=== PATIENT | male | born 1995 ===

== ENCOUNTER 2023-06-26 14:19 | Outpatient (CLI) | payer OTHER ==
--- NOTE | 2023-06-26 20:06 | MRI Report ---
PROCEDURE: LUMBAR SPINE WO INDICATIONS: DORSALGIA TECHNIQUE: Noncontrast sagittal T1 spin echo and T2 fast echo, sagittal STIR, axial T2 fast spin echo through th e lumbar spine. COMPARISON: None. FINDINGS: Image quality: Excellent. Alignment and Curvature: There is normal bony alignment. Bone Marrow: Marrow is of normal overall signal. No acute vertebral body compression fractures. Spinal Cord: Conus medullaris terminates at the L1-2 disc space level. Visualized cord demonstrates normal signal and size. Paraspinous Soft Tissues: No paravertebral masses. Discs: No significant disc bulging, spinal canal stenosis, or neuroforaminal narrowing is seen at any level in the lumbar spine. IMPRESSION: Lumbar spine MRI is within normal limits. Reviewed by: Josh Decker MD on 06/26/2023 8:04 PM PDT Approved by: Josh Decker MD on 06/26/2023 8:04 PM PDT Station ID: [id number]
== END 2023-06-26 14:20 | disposition home or self-care (01) ==
LOC: DI 14:19
DX: M54.59 Other low back pain (principal)

== ENCOUNTER 2024-02-12 07:14 | Outpatient (CLI) | payer OTHER ==
--- NOTE | 2024-02-12 12:04 | MRI Report ---
PROCEDURE: Lumbar Spine WO INDICATIONS: LOW BACK PAIN TECHNIQUE: Noncontrast sagittal T1 spin echo and T2 fast echo, sagittal STIR, axial T1 and T2 fast spin echo thr ough the lumbar spine. In cases with scoliosis, additional coronal T2 fast spin echo may be performe d. COMPARISON: 06/26/2023. FINDINGS: Image quality: Excellent. Alignment and Curvature: There is normal bony alignment. Bone Marrow: Marrow is of normal overall signal. No acute vertebral body compression fractures. Spinal Cord: Conus medullaris terminates at the L1 level. Visualized cord demonstrates normal signa l and size. Paraspinous Soft Tissues: No paravertebral masses. T12-L1: Normal in appearance. L1-L2: Normal in appearance. L2-L3: Normal in appearance. L3-L4: Normal in appearance. L4-L5: Normal in appearance. L5-S1: Normal in appearance. IMPRESSION: 1. No compression fracture or spondylolisthesis in lumbar spine. No suspicious bony lesion. 2. No significant disc bulge, canal stenosis or neural foraminal narrowing. Reviewed by: Magno Mistry MD on 02/12/2024 12:03 PM PDT Approved by: Magno Mistry MD on 02/12/2024 12:03 PM PDT Station ID: [id number]
== END 2024-02-12 07:15 | disposition home or self-care (01) ==
LOC: DI 07:14
PROVIDERS: ATTEND Student in an Organized Health Care Education/Training Program
DX: M54.50 Low back pain, unspecified (principal)

== ENCOUNTER 2024-02-20 09:15 | Outpatient (CLI) | payer OTHER ==
--- NOTE | 2024-02-22 09:26 | MRI Report ---
PROCEDURE: Cervical Spine WO INDICATIONS: CERVICAL RADICULITIS TECHNIQUE: Noncontrast sagittal T1 spin echo and T2 fast spin echo, sagittal STIR, foraminal oblique sagittal T2 fast spin echo, and axial gradient echo or T2 fast spin echo through the cervical spine. COMPARISON: None. FINDINGS: Image quality: Excellent. Alignment and Curvature: There is normal bony alignment. Bone Marrow: Marrow demonstrates normal overall signal. Spinal Cord: Visualized spinal cord has normal size and signal. No cerebellar tonsillar herniation. Paraspinous Soft Tissues: No paravertebral masses. Prevertebral soft tissues are normal in thicknes s. C2-C3: Normal in appearance. C3-C4: Normal in appearance. C4-C5: Normal in appearance. C5-C6: Mild disc desiccation and disc height loss. No significant neural foraminal narrowing. C6-C7: Normal in appearance. C7-T1: Normal in appearance. IMPRESSION: 1.No compression fracture or suspicious osseous lesion. 2.Mild disc height loss at C5-C6 without significant central or neuroforaminal stenosis. Reviewed by: Savita Howell MD on 02/22/2024 9:24 AM PDT Approved by: Savita Howell MD on 02/22/2024 9:24 AM PDT Station ID: [id number]
== END 2024-02-20 09:16 | disposition home or self-care (01) ==
LOC: DI 09:15
PROVIDERS: ATTEND Student in an Organized Health Care Education/Training Program
DX: M50.122 Cervical disc disorder at C5-C6 level with radiculopathy (principal)

== ENCOUNTER 2024-07-19 16:47 | Emergency (ER) | payer OTHER ==
[2024-07-19 17:06] VITALS: BP 151/95; O2SAT 97
[2024-07-19] MEDS: lidocaine 1% 20 ML MDV SUBQ ONE (17:10)
[2024-07-19] MEDS: AMOX/CLAV 875 MG/125 MG TABLET PO STA (17:10)
--- NOTE | 2024-07-19 17:12 | ED Physician Documentation ---
PD HPI UPPER EXT INJURY - Stated complaint Stated Complaint: LT FINGER LAC - Chief complaint Chief Complaint: Trauma Ext - History obtained from History obtained from: Patient - Additonal information Additional information: He was trying to break up a dog fight and a fully immunized dog bit him on the left hand which is his nondominant side. He is up-to-date on tetanus. PD PAST MEDICAL HISTORY - Past Medical History Past Medical History: Yes Cardiovascular: High cholesterol Endocrine/Autoimmune: HyPOthyroidism Psych: Depression, Anxiety, Post traumatic stress disorder - Past Surgical History Past Surgical History: No - Present Medications Home Medications: Ambulatory Orders Medication Instructions Recorded Confirmed Amox/Clav 875/125 [Augmentin] 1 each PO Q12H #10 tablet 07/19/24 - Allergies Allergies/Adverse Reactions: Allergies Allergy/AdvReac Type Severity Reaction Status Date / Time No Known Drug Allergies Allergy Verified 07/19/24 16:59 - Social History Does the pt smoke?: No Smoking Status: Former smoker Does the pt drink ETOH?: Yes Does the pt have substance abuse?: No PD ED PE NORMAL - Vitals Vital signs reviewed: Yes - General General: Alert and oriented X 3, No acute distress - Extremities Extremities: Other (There are couple scrapes on the left hand but there is 1 laceration on the proximal part of the palmar surface of the left fourth finger that does need closure. No distal neurovascular compromise or bony tenderness.) - Neuro Neuro: Alert and oriented X 3, Normal speech Results - Vitals Vitals: Vital Signs - 24 hr 07/19/24 16:52 Temperature 36.2 C L Heart Rate 99 Respiratory 18 Rate Blood Pressure 151/95 H O2 Saturation 97 Oxygen O2 Source Room air Procedures - Laceration (location) L 4th finger Length in cm: 1 Wound type: Curved, Into subcut fat Anesthesia: Lidocaine 1% Wound preparation: Irrigated copiously NS Skin layer closure: Nylon, Size #-0 - enter number (4-0), Sutures - enter # (1) Other: Patient tolerated well, No complications, Neurovascular intact Departure - Departure Disposition: 01 Home, Self Care Clinical Impression: Dog bite of left hand Qualifiers: Encounter type: initial encounter Qualified Code(s): S61.452A - Open bite of left hand, initial encounter; W54.0XXA - Bitten by dog, initial encounter Condition: Good Record reviewed to determine appropriate education?: Yes Instructions: ED Laceration Hand Prescriptions: Amox/Clav 875/125 [Augmentin] 1 each PO Q12H #10 tablet Comments: I sent your prescription electronically to the [email or web address] in [place]. Come back for any signs of infection which would include: Redness, swelling, drainage, increased pain, or fevers. You can wash it soap and water. Keep it covered and moist with bacitracin ointment which is available over the counter; avoid neosporin. Follow-up with your physician in about 14 days for suture removal. Forms: PCP List
== END 2024-07-19 17:50 | disposition home or self-care (01) ==
LOC: ED 16:47
DX: S60.512A Abrasion of left hand, initial encounter (principal); S61.215A Laceration without foreign body of left ring finger without damage to nail, initial encounter; W54.0XXA Bitten by dog, initial encounter; Y93.K9 Activity, other involving animal care; Y92.830 Public park as the place of occurrence of the external cause; Z87.891 Personal history of nicotine dependence
CPT/HCPCS: 12001; 99283; A9270